=== PATIENT | male | born 2000 | race Hispanic/Latino ===

== ENCOUNTER 2024-10-26 14:27 | Emergency (ER) | payer SELFPAY ==
[~2024-10-26] VITALS: Ht 170.2 cm; Wt 77.0 kg
[2024-10-26] VITALS (8 sets, daily range): BP systolic 124–139; BP diastolic 69–85
[2024-10-26] MEDS ORDERED: METOCLOPRAMIDE HCL 10 MG/2 ML SDV IV ONE (14:45)
[2024-10-26] MEDS ORDERED: KETOROLAC TROMETHAMINE 15 MG/ML SDV IV ONE (14:45)
[2024-10-26] MEDS ORDERED: DiphenhydrAMINE HCL 50 MG/ML SDV IV ONE (14:45)
[2024-10-26] MEDS ORDERED: SODIUM CHLORIDE 0.9% 1,000 ML IV ONE (14:45)
[2024-10-26] MEDS ORDERED: ACETAMINOPHEN 500 MG TAB PO ONE (14:45)
[2024-10-26 15:06] LABS: BASO% 0.2 % (0-3); EOS% 0.2 % (0-8); HEMATOCRIT 42.4 % (39.0-50.0); HEMOGLOBIN 14.6 g/dl (14.0-18.0); IMMATURE GRANULOCYTES 0.2 % (0.0-5.0); LYMPH% 9.8 % (15-41); MEAN CELL VOLUME 89.6 fL CALC (80.0-100.0); MEAN CORPUSCULAR HGB 30.9 pG CALC (26.0-32.0); MEAN CORPUSCULAR HGB CONC 34.4 g/dL CAL (32.0-36.0); MONO% 3.8 % (2-13); NEUT# 11.16 thou/uL (1.82-7.42); NEUT% 85.8 % (42-76); RED BLOOD COUNT 4.73 mill/uL (4.70-6.10); RED CELL DISTRI WIDTH 12.7 % (11.5-15.5)
[2024-10-26] MEDS ORDERED: ONDANSETRON HCl 4 MG/2 ML SDV IV ONE (15:15)
[2024-10-26 15:18] LABS: ALBUMIN 5.4 g/dL (3.2-5.0); BILIRUBIN, TOTAL 1.1 mg/dL (0.2-1.3)
[2024-10-26 15:20] LABS: POTASSIUM 3.7 mmol/l (3.5-5.1)
== END 2024-10-26 16:45 | disposition home or self-care (01) | DRG 103 ==
LOC: ED 14:27
PROVIDERS: Family Medicine
DX: R51.9 Headache, unspecified (principal); Z20.822 Contact with and (suspected) exposure to COVID-19
CPT/HCPCS: J1100; J1200; J1885; J2405; J2765